=== PATIENT | female | born 1945 | race Caucasian/White ===

== ENCOUNTER 2017-11-01 18:45 | Observation (INO) | payer OTHER ==
[~2017-11-01] VITALS: Ht 160 cm; Wt 82.1 kg
[2017-11-01 18:57] LABS: EOSINOPHILS % (AUTO) 1.3 % (0.0-8.0); HEMATOCRIT 39.3 % (36-48); LYMPHOCYTES % (AUTO) 22.3 % (21.0-51.0); MEAN CORPUSCULAR HGB CONC 35.3 g/dL (32.0-36.0); MEAN CORPUSCULAR VOLUME 87.8 fL (79-99); MONOCYTES % (AUTO) 4.2 % (3.0-13.0); NEUTROPHILS % (AUTO) 71.2 % (40.0-77.0); PLATELET COUNT (AUTO) 261 K/uL (130-400); RED BLOOD CELL COUNT(AUTO) 4.48 MIL/uL (4.00-5.50); RED CELL DISTRIBUTION WIDTH 13.6 % (11.0-15.5); WHITE BLOOD COUNT (AUTO) 9.2 K/uL (4.8-10.8)
[2017-11-01 19:06] LABS: CREATININE 1.2 mg/dL (0.5-1.5); POTASSIUM 3.7 mmol/L (3.5-5.1)
[2017-11-01 19:19] LABS: ALBUMIN 3.9 g/dL (3.5-5.0); BILIRUBIN,TOTAL 0.4 mg/dL (0.2-1.0); TOTAL PROTEIN, SERUM 7.5 g/dL (6.0-8.3)
[2017-11-01 19:45] LABS: CREATINE KINASE MB 1.4 ng/mL (0.5-3.6)
[2017-11-01] MEDS ORDERED: SODIUM CHLORIDE 0.9% 1000ML 1,000 ML IV ONE (20:23)
[2017-11-01] MEDS ORDERED: POTASSIUM CHLORIDE 10% ELIXIR 20 MEQ/15 ML UDCUP PO PRN (21:15)
[2017-11-01] MEDS ORDERED: POTASSIUM CHLORIDE 20 MEQ ERTAB PO PRN (21:15)
[2017-11-01] MEDS ORDERED: ACETAMINOPHEN 325 MG TAB PO PRN ×2 (21:15)
[2017-11-01] MEDS ORDERED: SODIUM CHLORIDE 0.9% 1000ML 1,000 ML IV SCH (21:15)
[2017-11-01] MEDS ORDERED: LACTULOSE 20 GM/30 ML UDCUP PO PRN (21:15)
[2017-11-01] MEDS ORDERED: DEXTROSE 50%-WATER 50 ML DISP.SYRIN IV PRN (21:15)
[2017-11-01] MEDS ORDERED: NITROGLYCERIN 0.4 MG SL TAB SL PRN (21:15)
[2017-11-01] MEDS ORDERED: GLUCAGON 1MG KIT 1 MG ML IM PRN (21:15)
[2017-11-01] MEDS ORDERED: LIDOCAINE HCL-MPF 1% 2ML VIAL IJ PRN (21:15)
[2017-11-01] MEDS ORDERED: POTASSIUM CHLORIDE 20MEQ/100ML 100 ML IV PRN (21:15)
[2017-11-01] MEDS ORDERED: METOPROLOL TARTRATE 25 MG TAB ONE (21:20)
[2017-11-01] MEDS ORDERED: FAMOTIDINE 20MG TAB 20 MG TAB ONE (21:20)
[2017-11-01] MEDS: METOPROLOL TARTRATE 25 MG TAB PO SCH (21:30)
[2017-11-01 22:24] VITALS: BP 138/94
[2017-11-01] MEDS ORDERED: ZOLPIDEM TARTRATE 5 MG TAB PO PRN (22:45)
[2017-11-01] MEDS ORDERED: IPRATROPIUM 0.5 MG/2.5 ML INH IH PRN (22:45)
[2017-11-02] MEDS ORDERED: DiphenhydrAMINE HCL 50 MG/ML VIAL IV PRN (01:00)
[2017-11-02 02:04] LABS: HEMATOCRIT 36.2 % (36-48); MEAN CORPUSCULAR HEMOGLOBIN 31.5 pg (27.0-33.0); MEAN CORPUSCULAR HGB CONC 35.3 g/dL (32.0-36.0); MEAN CORPUSCULAR VOLUME 89.2 fL (79-99); PLATELET COUNT (AUTO) 209 K/uL (130-400); RED BLOOD CELL COUNT(AUTO) 4.05 MIL/uL (4.00-5.50); RED CELL DISTRIBUTION WIDTH 13.4 % (11.0-15.5); WHITE BLOOD COUNT (AUTO) 7.6 K/uL (4.8-10.8)
[2017-11-02 02:14] LABS: CREATININE 0.8 mg/dL (0.5-1.5); POTASSIUM 3.9 mmol/L (3.5-5.1)
[2017-11-02 02:23] LABS: CREATINE KINASE MB 1.3 ng/mL (0.5-3.6); CREATINE KINASE, TOTAL 64 U/L (21-232); MYOGLOBIN 38 ng/mL (10-92); TROPONIN I < 0.04 ng/mL (0.00-0.06)
[2017-11-02 02:32] LABS: HEMOGLOBIN A1C 5.6 % (4.0-6.0)
[2017-11-02] MEDS: INSULIN R PO SSI SQ SCH ×4 (02:38→21:00)
[2017-11-02 03:31] VITALS: BP 121/65
[2017-11-02] MEDS: INSULIN R NPO SS1 SQ SCH ×6 (05:54→21:10)
[2017-11-02 07:00] VITALS: BP 132/70
[2017-11-02 08:34] LABS: CREATINE KINASE MB 1.2 ng/mL (0.5-3.6); CREATINE KINASE, TOTAL 64 U/L (21-232); MYOGLOBIN 36 ng/mL (10-92); TROPONIN I < 0.04 ng/mL (0.00-0.06)
[2017-11-02] MEDS ORDERED: FAMOTIDINE 20MG TAB 20 MG TAB PO SCH (09:00)
[2017-11-02] MEDS: METOPROLOL TARTRATE 25 MG TAB PO SCH ×2 (09:14→20:15)
[2017-11-02] MEDS: ASPIRIN 325 MG TABLET PO SCH (09:14)
[2017-11-02] MEDS: PANTOPRAZOLE 40 MG/VIAL IVP SCH (09:14)
[2017-11-02 11:00] VITALS: BP 127/61
[2017-11-02 16:00] VITALS: BP 140/72
[2017-11-02 18:55] VITALS: BP 128/63
[2017-11-02 20:27] LABS: APPEARANCE,URINE Clear (CLEAR); BILIRUBIN,URINE Negative (NEGATIVE); COLOR,URINE Yellow (YELLOW); GLUCOSE, URINE (UA) Negative (NEGATIVE); KETONES,URINE Negative (NEGATIVE); LEUKOCYTE ESTERASE ,URINE Trace (NEGATIVE); NITRATE,URINE Negative (NEGATIVE); OCCULT BLOOD,URINE Negative (NEGATIVE); PH,URINE 5.5 (5.0-8.0); PROTEIN,URINE Negative (NEGATIVE); UROBILINOGEN,URINE 0.2 mg/dL (0.2-1.0)
[2017-11-02 20:47] LABS: BACTERIA,URINE Rare /HPF (None Seen); RBC,URINE 0-1 /HPF (0-1); SQUAMOUS EPITHELIAL CELL,UR Rare /HPF (0-2)
[2017-11-02 23:12] VITALS: BP 129/55
[2017-11-03 03:16] VITALS: BP 111/66
[2017-11-03 04:48] LABS: CREATININE 0.8 mg/dL (0.5-1.5); POTASSIUM 4.3 mmol/L (3.5-5.1)
[2017-11-03] MEDS: INSULIN R PO SSI SQ SCH (05:28)
[2017-11-03 07:05] VITALS: BP 136/66
[2017-11-03] MEDS: INSULIN R NPO SS1 SQ SCH (07:24)
[2017-11-03] MEDS: ASPIRIN 325 MG TABLET PO SCH (07:26)
[2017-11-03] MEDS: METOPROLOL TARTRATE 25 MG TAB PO SCH (07:26)
[2017-11-03] MEDS: PANTOPRAZOLE 40 MG/VIAL IVP SCH (07:27)
== END 2017-11-03 09:29 | disposition home or self-care (01) ==
LOC: EDH 18:45 → EDHIP 20:25 → 2DH 21:50
PROVIDERS: ADMIT Internal Medicine; ATTEND Internal Medicine
DX: R00.2 Palpitations (principal); R55 Syncope and collapse; E78.5 Hyperlipidemia, unspecified; E11.9 Type 2 diabetes mellitus without complications; I10 Essential (primary) hypertension; F32.9 Major depressive disorder, single episode, unspecified; F41.9 Anxiety disorder, unspecified; Z90.49 Acquired absence of other specified parts of digestive tract; Z90.710 Acquired absence of both cervix and uterus; Z98.51 Tubal ligation status; Z83.3 Family history of diabetes mellitus; Z98.49 Cataract extraction status, unspecified eye
CPT/HCPCS: 36415 ×3; 71045; 80048 ×2; 80053; 81001; 82550 ×3; 82553 ×3; 82948 ×5; 83036; 83874 ×2; 84443; 84484 ×3; 85025; 85027; 93005 ×3; 93306; 94664; 96361 ×2; 96374; 99285; A4600; C9113 ×2; G0378 ×37; J1815; J7030 ×2

== ENCOUNTER → 2017-12-17 | Outpatient (CLI) | payer OTHER ==
[~2017-12-17] MED LIST: REGADENOSON 0.4 MG/5 ML PF SYG IVP SCH
== END | disposition home or self-care (01) ==
LOC: SHCH 11:59
PROVIDERS: ATTEND Internal Medicine Cardiovascular Disease
DX: R07.9 Chest pain, unspecified (principal)
CPT/HCPCS: 78452; 93017; 96374; A9500 ×2; J2785

== ENCOUNTER 2019-03-08 05:07 | Emergency (ER) | payer OTHER ==
[2019-03-08] MEDS ORDERED: ACETAMINOPHEN 325 MG TAB ONE (06:05)
[2019-03-08] MEDS ORDERED: LIDOCAINE 5% TOPICAL PATCH TP ONE (07:28)
[2019-03-08] MEDS ORDERED: KETOROLAC TROMETHAMINE 30MG/ML ONE (07:28)
== END 2019-03-08 07:47 | disposition home or self-care (01) ==
LOC: EDH 05:07
DX: S40.012A Contusion of left shoulder, initial encounter (principal); M62.838 Other muscle spasm; I10 Essential (primary) hypertension; E78.5 Hyperlipidemia, unspecified; Z90.49 Acquired absence of other specified parts of digestive tract; Z90.710 Acquired absence of both cervix and uterus; W18.39XA Other fall on same level, initial encounter; Y93.89 Activity, other specified; Y92.89 Other specified places as the place of occurrence of the external cause; Y99.8 Other external cause status
CPT/HCPCS: 71046; 73030; 96372; 99284; J1885

== ENCOUNTER 2020-02-25 14:51 | Observation (INO) | payer OTHER ==
[~2020-02-25] VITALS: Ht 160 cm; Wt 78.3 kg
[2020-02-25 15:21] LABS: BASOPHILS % (AUTO) 0.6 % (0.0-5.0); HEMATOCRIT 40.1 % (36-48); LYMPHOCYTES % (AUTO) 23.6 % (21.0-51.0); MEAN CORPUSCULAR HEMOGLOBIN 30.7 pg (27.0-33.0); MEAN CORPUSCULAR HGB CONC 34.9 g/dL (32.0-36.0); MEAN CORPUSCULAR VOLUME 87.9 fL (79-99); MONOCYTES % (AUTO) 7.2 % (3.0-13.0); NEUTROPHILS % (AUTO) 67.3 % (40.0-77.0); PLATELET COUNT (AUTO) 210 K/uL (130-400); RED BLOOD CELL COUNT(AUTO) 4.56 MIL/uL (4.00-5.50); RED CELL DISTRIBUTION WIDTH 12.7 % (11.0-15.5); WHITE BLOOD COUNT (AUTO) 7.2 K/uL (4.8-10.8)
[2020-02-25] MEDS ORDERED: ASPIRIN 325 MG TABLET ONE (15:26)
[2020-02-25] MEDS ORDERED: SODIUM CHLORIDE 0.9% 500ML 500 ML IV SCH (15:41)
[2020-02-25 15:43] LABS: CREATININE 0.9 mg/dL (0.5-1.5); POTASSIUM 3.7 mmol/L (3.5-5.1); THYROID STIMULATING HORMONE 1.46 uIU/mL (0.36-3.74)
[2020-02-25] MEDS ORDERED: ENOXAPARIN SODIUM 1 MG/KG SQ SCH (15:45)
[2020-02-25] MEDS ORDERED: CLOPIDOGREL BISULFATE 300 MG TAB PO SCH (15:45)
[2020-02-25 16:43] LABS: INR 0.94 (0.85-1.15); PARTIAL THROMBOPLASTIN TIME 28.2 SEC (26.3-35.5); PROTHROMBIN TIME 10.2 SEC (9.6-11.6)
[2020-02-25] MEDS ORDERED: ISOSORBIDE MONO 30MG TAB SR PO ONE (16:46)
[2020-02-25] MEDS ORDERED: CLOPIDOGREL BISULFATE 300 MG TAB ONE (16:46)
[2020-02-25] MEDS ORDERED: SODIUM CHLORIDE 0.9% 500ML 500 ML IV ONE (16:48)
[2020-02-25] MEDS ORDERED: MORPHINE SULFATE 2 MG/ML 1ML SYG IVP PRN (17:00)
[2020-02-25] MEDS ORDERED: ONDANSETRON HCL 4 MG/2 ML VIAL IVP PRN (17:00)
[2020-02-25] MEDS: METOPROLOL SUCCINATE 50 MG TAB.SR.24H PO SCH (17:00)
[2020-02-25] MEDS: ISOSORBIDE MONO 30MG TAB SR PO SCH (17:00)
[2020-02-25] MEDS ORDERED: SODIUM CHLORIDE 0.9% 1000ML 1,000 ML IV SCH (17:00)
[2020-02-25] MEDS ORDERED: ACETAMINOPHEN 325 MG TAB PO PRN ×2 (17:00)
[2020-02-25] MEDS ORDERED: ENOXAPARIN SODIUM 80 MG/0.8 ML SQ SCH (17:00)
[2020-02-25 17:13] LABS: APPEARANCE,URINE Cloudy (CLEAR); BILIRUBIN,URINE Negative (NEGATIVE); COLOR,URINE Yellow (YELLOW); GLUCOSE, URINE (UA) Negative (NEGATIVE); KETONES,URINE Negative (NEGATIVE); LEUKOCYTE ESTERASE ,URINE Large (NEGATIVE); NITRATE,URINE Negative (NEGATIVE); OCCULT BLOOD,URINE Negative (NEGATIVE); PROTEIN,URINE Negative (NEGATIVE)
[2020-02-25 17:15] LABS: TROPONIN I 0.09 ng/mL (0.00-0.06)
[2020-02-25 17:26] LABS: BACTERIA,URINE Few /HPF (None Seen); RBC,URINE None Seen /HPF (0-1)
[2020-02-25] MEDS ORDERED: ALEN70TA10 PO (20:29)
[2020-02-25] MEDS ORDERED: CALC-1153 PO (20:30)
[2020-02-25] MEDS ORDERED: MULT-1053 PO (20:32)
[2020-02-25] MEDS ORDERED: AMLO2.5T4 PO (20:33)
[2020-02-25] MEDS ORDERED: AMLO5TAB9 PO (20:34)
[2020-02-25] MEDS ORDERED: PRAV80TA21 PO (20:36)
[2020-02-25] MEDS ORDERED: LOSA100T58 PO (20:36)
[2020-02-25] MEDS ORDERED: AEC81 PO (20:37)
[2020-02-25] MEDS ORDERED: CHOL200012 PO (20:38)
[2020-02-25] MEDS: FAMOTIDINE/PF 20 MG/2 ML VIAL IV SCH (21:38)
[2020-02-26] VITALS (11 sets, daily range): BP systolic 115–135; BP diastolic 24–75
[2020-02-26 00:56] LABS: TROPONIN I 0.06 ng/mL (0.00-0.06)
[2020-02-26 04:43] LABS: BASOPHILS % (AUTO) 0.4 % (0.0-5.0); EOSINOPHILS % (AUTO) 2.3 % (0.0-8.0); HEMATOCRIT 37.4 % (36-48); LYMPHOCYTES % (AUTO) 29.9 % (21.0-51.0); MEAN CORPUSCULAR HEMOGLOBIN 30.8 pg (27.0-33.0); MEAN CORPUSCULAR HGB CONC 34.2 g/dL (32.0-36.0); MEAN CORPUSCULAR VOLUME 90.1 fL (79-99); MONOCYTES % (AUTO) 7.6 % (3.0-13.0); NEUTROPHILS % (AUTO) 59.7 % (40.0-77.0); PLATELET COUNT (AUTO) 205 K/uL (130-400); RED BLOOD CELL COUNT(AUTO) 4.15 MIL/uL (4.00-5.50); RED CELL DISTRIBUTION WIDTH 12.7 % (11.0-15.5); WHITE BLOOD COUNT (AUTO) 7.1 K/uL (4.8-10.8)
[2020-02-26 05:11] LABS: ALBUMIN 3.5 g/dL (3.5-5.0); BILIRUBIN,TOTAL 0.5 mg/dL (0.2-1.0); CREATININE 0.9 mg/dL (0.5-1.5); POTASSIUM 4.5 mmol/L (3.5-5.1); TOTAL PROTEIN, SERUM 6.5 g/dL (6.0-8.3)
[2020-02-26] MEDS ORDERED: MIDAZOLAM HCL 1 MG/ML 2ML VIAL ONE (07:15)
[2020-02-26] MEDS ORDERED: IOHEXOL-350 50ML VIAL IV ONE (07:15)
[2020-02-26] MEDS ORDERED: HEPARIN SODIUM 1000UNIT/ML 10ML VIAL ONE (07:15)
[2020-02-26] MEDS ORDERED: LIDOCAINE HCL 2% 20ML ONE (07:15)
[2020-02-26] MEDS ORDERED: IOHEXOL 350 MG/ML 100ML INFUS..BTL IV ONE (07:15)
[2020-02-26] MEDS ORDERED: Isosorbide Mono 30MG Tab Sr PO (08:03)
[2020-02-26] MEDS ORDERED: METO50TA9 PO (08:03)
[2020-02-26] MEDS ORDERED: NITR0.4T SL (08:03)
--- NOTE | 2020-02-26 08:18 | NUR ---
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 PT DENIES PAIN, SOB, NAUSEA. RT GROIN SOFT, NONTENDER WITH NO OOZING OR HEMATOMA PRESENT. DP/PT PULSES PALPABLE. PT ON FLAT BEDREST FOR 3 HOURS UNTIL 1100 AM. CALL LIGHT WITHIN REACH.
[2020-02-26] MEDS ORDERED: ATORVASTATIN CALCIUM 40 MG TABLET PO SCH (09:00)
[2020-02-26] MEDS ORDERED: ASPIRIN 81MG TAB.CHEW PO SCH (09:00)
[2020-02-26] MEDS ORDERED: CLOPIDOGREL BISULFATE 75 MG TAB PO SCH (09:00)
[2020-02-26 09:06] LABS: TROPONIN I 0.09 ng/mL (0.00-0.06)
--- NOTE | 2020-02-26 11:00 | NUR ---
BEDREST COMPLETE RT GROIN SOFT NONTENDER WITH NO OOZING OR HEMATOMA PRESENT. DP/PT PULSES PALPABLE. PT REPOSITIONED TO HIGH MAYO'S POSITION FOR 30 MINUTES TO RE-EVALUATE GROIN AFTER REPOSITIONING. CALL LIGHT WITHIN REACH.
--- NOTE | 2020-02-26 11:30 | NUR ---
AMBULATION TO BATHROOM AND BACK TO BED, GAIT STEADY AND STRONG WITH STAND BY ASSIST. RT GROIN SOFT NONTENDER WITH NO OOZING OR HEMATOMA PRESENT. DP/PT PULSES PALPABLE, CALL LIGHT WITHIN REACH.
[2020-02-26] MEDS: ISOSORBIDE MONO 30MG TAB SR PO SCH (11:34)
[2020-02-26] MEDS: METOPROLOL SUCCINATE 50 MG TAB.SR.24H PO SCH (11:34)
[2020-02-26] MEDS: FAMOTIDINE/PF 20 MG/2 ML VIAL IV SCH (11:35)
--- NOTE | 2020-02-26 12:41 | NUR ---
[id number] PATIENT SIGNED KNIGHT LETTER, I FAXED KNIGHT LETTER TO [id number] AND PLACED IN CHART UNDER CONSENT TAB.
--- NOTE | 2020-02-26 13:00 | NUR ---
DISCHARGE INSTRUCTIONS GIVEN, PIV REMOVED AND INTACT, DISCHARGED HOME TO FAMILY VEHICLE VIA WHEELCHAIR.
== END 2020-02-26 13:00 | disposition home or self-care (01) ==
LOC: EDH 14:51 → INTOOBSV 17:50 → EDHIP 17:50 → DAHIP 18:43
PROVIDERS: ADMIT Hospitalist; ATTEND Hospitalist
DX: I24.9 Acute ischemic heart disease, unspecified (principal); I10 Essential (primary) hypertension; E78.5 Hyperlipidemia, unspecified; F32.9 Major depressive disorder, single episode, unspecified; Z90.49 Acquired absence of other specified parts of digestive tract; Z98.51 Tubal ligation status; Z87.891 Personal history of nicotine dependence
CPT/HCPCS: 36415 ×2; 71045; 80048; 80053; 80061; 81001; 82550 ×3; 83874 ×3; 84436; 84443; 84484 ×4; 85025 ×2; 85610; 85730; 87088; 93005 ×2; 93458; 96374; 96376; 99291; C1760; C1894; G0378 ×8; J1644 ×2; J3490 ×3; J7040; Q9965; Q9967 ×2; J2250

== ENCOUNTER → 2020-03-11 | Outpatient (CLI) | payer OTHER ==
[~2020-03-11] MED LIST changes: +AEC81 PO; +ALEN70TA10 PO; +CALC-1153 PO; +CHOL200012 PO; +Isosorbide Mono 30MG Tab Sr PO; +LOSA100T58 PO; +METO50TA9 PO; +MULT-1053 PO; +NITR0.4T SL; +PRAV80TA21 PO
== END | disposition home or self-care (01) ==
LOC: RAH 08:56
PROVIDERS: ATTEND Internal Medicine
DX: R94.39 Abnormal result of other cardiovascular function study (principal); R07.9 Chest pain, unspecified; R06.00 Dyspnea, unspecified
CPT/HCPCS: 78452; 93017; 96374; A9500 ×2; J2785

== ENCOUNTER → 2020-04-29 | Outpatient (CLI) | payer OTHER ==
[~2020-04-29] MED LIST changes: -ALEN70TA10 PO; +ALEN70TA69 PO; -REGADENOSON 0.4 MG/5 ML PF SYG IVP SCH
== END | disposition home or self-care (01) ==
LOC: RAH 10:46
DX: M17.12 Unilateral primary osteoarthritis, left knee (principal)
CPT/HCPCS: 73562

== ENCOUNTER 2020-07-16 07:44 | Emergency (ER) | payer OTHER ==
[2020-07-16] MEDS ORDERED: OCTYL 2-CYANOACRYLATE 1 EACH TP ONE (08:11)
[2020-07-16] MEDS ORDERED: ACETAMINOPHEN 325 MG TAB ONE (09:13)
== END 2020-07-16 10:38 | disposition home or self-care (01) ==
LOC: EDH 07:44
DX: S61.213A Laceration without foreign body of left middle finger without damage to nail, initial encounter (principal); S60.052A Contusion of left little finger without damage to nail, initial encounter; S50.812A Abrasion of left forearm, initial encounter; F32.9 Major depressive disorder, single episode, unspecified; E78.5 Hyperlipidemia, unspecified; I10 Essential (primary) hypertension; Z90.49 Acquired absence of other specified parts of digestive tract; Z90.710 Acquired absence of both cervix and uterus; W01.0XXA Fall on same level from slipping, tripping and stumbling without subsequent striking against object, initial encounter; Y93.02 Activity, running; Y92.89 Other specified places as the place of occurrence of the external cause; Y99.8 Other external cause status
CPT/HCPCS: 12001; 70450; 73140

== ENCOUNTER → 2020-12-23 | Outpatient (CLI) | payer OTHER ==
[~2020-12-23] MED LIST changes: -ALEN70TA69 PO; +ALEN70TA80 PO
== END | disposition home or self-care (01) ==
LOC: RAH 08:56
PROVIDERS: ATTEND Internal Medicine
DX: E04.1 Nontoxic single thyroid nodule (principal)
CPT/HCPCS: 76536

== ENCOUNTER 2021-01-29 09:28 | Emergency (ER) | payer OTHER ==
[~2021-01-29] VITALS: Ht 160 cm; Wt 74.4 kg
[2021-01-29 09:30] VITALS: BP 153/71
[2021-01-29 11:03] LABS: APPEARANCE,URINE Clear (CLEAR); BILIRUBIN,URINE Negative (NEGATIVE); COLOR,URINE Yellow (YELLOW); GLUCOSE, URINE (UA) Negative (NEGATIVE); KETONES,URINE Negative (NEGATIVE); LEUKOCYTE ESTERASE ,URINE Negative (NEGATIVE); NITRATE,URINE Negative (NEGATIVE); OCCULT BLOOD,URINE Negative (NEGATIVE); PH,URINE 6.5 (5.0-8.0); PROTEIN,URINE Negative (NEGATIVE)
== END 2021-01-29 14:02 | disposition home or self-care (01) ==
LOC: EDH 09:28
DX: R33.9 Retention of urine, unspecified (principal); N81.4 Uterovaginal prolapse, unspecified; I10 Essential (primary) hypertension; Z79.899 Other long term (current) drug therapy; Z79.82 Long term (current) use of aspirin
CPT/HCPCS: 51702; 81003

== ENCOUNTER → 2021-06-26 | Outpatient (CLI) | payer OTHER | END | disposition home or self-care (01) | LOC: RAH 08:49 | PROVIDERS: ATTEND Internal Medicine | DX: E04.2 Nontoxic multinodular goiter (principal); E21.1 Secondary hyperparathyroidism, not elsewhere classified | CPT/HCPCS: 76536 ==

== ENCOUNTER → 2021-10-25 | Outpatient (CLI) | payer OTHER | END | disposition home or self-care (01) | LOC: RAH 10:12 | PROVIDERS: ATTEND Otolaryngology | DX: E04.2 Nontoxic multinodular goiter (principal) | CPT/HCPCS: 76536 ==

== ENCOUNTER → 2022-07-11 | Outpatient (CLI) | payer OTHER | END | disposition home or self-care (01) | LOC: RAH 10:47 | PROVIDERS: ATTEND Internal Medicine | DX: E21.3 Hyperparathyroidism, unspecified (principal) | CPT/HCPCS: 78070; A9500 ==

== ENCOUNTER → 2023-02-08 | Outpatient (CLI) | payer OTHER ==
[~2023-02-08] MED LIST changes: -ALEN70TA80 PO; -LOSA100T58 PO; +LOSA100T59 PO; +METO-408 PO; -METO50TA9 PO; +REGADENOSON 0.4 MG/5 ML PF SYG IVP ONE
== END | disposition home or self-care (01) ==
LOC: SHCH 07:57
PROVIDERS: ATTEND Internal Medicine Cardiovascular Disease
DX: I11.9 Hypertensive heart disease without heart failure (principal); I25.10 Atherosclerotic heart disease of native coronary artery without angina pectoris; I25.2 Old myocardial infarction; I25.9 Chronic ischemic heart disease, unspecified; E78.5 Hyperlipidemia, unspecified; Z95.1 Presence of aortocoronary bypass graft; Z79.82 Long term (current) use of aspirin; Z79.899 Other long term (current) drug therapy
CPT/HCPCS: 78452; 93017; J2785; A9500 ×2; 96374

== ENCOUNTER → 2023-10-21 | Outpatient (CLI) | payer OTHER ==
[~2023-10-21] MED LIST changes: -PRAV80TA21 PO; +PRAV80TA43 PO; -REGADENOSON 0.4 MG/5 ML PF SYG IVP ONE
== END | disposition home or self-care (01) ==
LOC: RAH 13:10
PROVIDERS: ATTEND Internal Medicine
DX: I11.0 Hypertensive heart disease with heart failure (principal); I50.9 Heart failure, unspecified; M47.815 Spondylosis without myelopathy or radiculopathy, thoracolumbar region; I25.709 Atherosclerosis of coronary artery bypass graft(s), unspecified, with unspecified angina pectoris; J44.9 Chronic obstructive pulmonary disease, unspecified
CPT/HCPCS: 71250

== ENCOUNTER → 2023-12-23 | Outpatient (CLI) | payer OTHER ==
[~2023-12-23] MED LIST changes: +PRAV80TA21 PO; -PRAV80TA43 PO
[2023-12-23 12:47] LABS: ALBUMIN 4.1 g/dL (3.5-5.0); BILIRUBIN,TOTAL 0.7 mg/dL (0.2-1.0); CREATININE 0.9 mg/dL (0.5-1.0); POTASSIUM 4.4 mmol/L (3.5-5.1); TOTAL PROTEIN, SERUM 7.3 g/dL (6.0-8.3)
== END | disposition home or self-care (01) ==
LOC: LAB 08:38
PROVIDERS: ATTEND Internal Medicine Cardiovascular Disease
DX: I25.10 Atherosclerotic heart disease of native coronary artery without angina pectoris (principal); R07.9 Chest pain, unspecified
CPT/HCPCS: 36415; 80053

== ENCOUNTER → 2023-12-27 | Outpatient (CLI) | payer OTHER ==
[~2023-12-27] MED LIST changes: +IOHEXOL 350 MG/ML 100ML INFUS..BTL IV ONE; +METOPROLOL TARTRATE 1 MG/ML 5ML VIAL IV ONE
== END | disposition home or self-care (01) ==
LOC: RAH 09:22
PROVIDERS: ATTEND Internal Medicine Cardiovascular Disease
DX: I25.10 Atherosclerotic heart disease of native coronary artery without angina pectoris (principal); R07.9 Chest pain, unspecified; Z95.1 Presence of aortocoronary bypass graft
CPT/HCPCS: 75574; J3490; Q9967

== ENCOUNTER → 2025-06-07 | Outpatient (CLI) | payer OTHER ==
[~2025-06-07] MED LIST changes: -IOHEXOL 350 MG/ML 100ML INFUS..BTL IV ONE; -METOPROLOL TARTRATE 1 MG/ML 5ML VIAL IV ONE; -PRAV80TA21 PO; +PRAV80TA75 PO
--- NOTE | 2025-06-08 02:37 | HMCIMG ---
STUDY Ultrasound Thyroid HISTORY Thyroid abnormality; clinical suspicion for multinodular goiter. TECHNIQUE High-resolution real-time ultrasound of the thyroid gland and anterior cervical soft tissues performed with grayscale and Doppler interrogation. Multiplanar static images archived. COMPARISON None provided. FINDINGS Right Thyroid Lobe Right lobe measures approximately 3.7 ??? 1.4 ??? 1.3 cm. Parenchyma is homogeneous with preserved echotexture. Vascularity is within normal limits. Multiple small cystic lesions are present including a complex cyst in the mid-lobe measuring approximately 5 ??? 3???4 mm with thin internal echoes and no mural nodule. Two additional simple anechoic cysts measuring approximately 3 ??? 2 mm each are noted in the [id number] pole. No solid nodules, microcalcifications, macrocalcifications, posterior shadowing, or extrathyroidal extension. No suspicious halo or irregular margins. Left Thyroid Lobe Left lobe measures approximately 3.4 ??? 1.5 ??? 0.9 cm. Parenchyma is homogeneous. One tiny simple anechoic cyst is seen in the inferior pole measuring approximately 1???2 mm. No solid nodules, no increased vascularity, and no calcific foci. No extrathyroidal extension. Isthmus Isthmic thickness measures approximately 2 mm. No focal nodule or cyst. Cervical Soft Tissues No abnormal soft-tissue mass or collection. No pathologic cervical lymphadenopathy is demonstrated in visualised levels. Carotid arteries and internal jugular veins appear normal in contour. TIRADS Characterisation Right-lobe complex cyst (5 mm): composition mixed cystic???solid with predominant cystic component; smooth margins; no echogenic foci; TIRADS 2. Right-lobe simple cysts (3 mm): anechoic; no septations or solid elements; TIRADS 1. Left-lobe simple cyst (1???2 mm): anechoic; TIRADS 1. No TIRADS 3, 4, or 5 lesions are identified. IMPRESSION * Small benign cystic thyroid lesions in both lobes including one right mid-lobe complex cyst (TIRADS 2) and multiple simple cysts (TIRADS 1). * No suspicious thyroid nodule, no solid lesion, and no features suggestive of malignancy. * No cervical lymphadenopathy. * Radiologic???clinical correlation: Overall features are consistent with a benign cystic change pattern within an otherwise normal thyroid gland; no findings to suggest thyroid malignancy. /[place]
== END | disposition home or self-care (01) ==
LOC: RAH 10:49
PROVIDERS: ATTEND Internal Medicine Endocrinology, Diabetes & Metabolism
DX: E04.2 Nontoxic multinodular goiter (principal)
CPT/HCPCS: 76536